=== PATIENT | female | born 1990 | race Two or more races ===

== ENCOUNTER 2017-08-21 04:21 | Emergency (ER) | payer OTHER ==
[~2017-08-21] VITALS: Ht 147.3 cm; Wt 56.0 kg
[~2017-08-21 04:21] MED LIST: HYDR-3533 PO; TAMS0.4C67 PO; ZOFR4TAB3 PO
[2017-08-21 04:25] VITALS: BP 123/58; PULSE 86; RESP 18; TEMP 98.3; O2SAT 99
[2017-08-21] MEDS ORDERED: OMEP40CA2 PO (05:03)
[2017-08-21] MEDS ORDERED: ZOLO50TA PO (05:03)
[2017-08-21] MEDS ORDERED: AMIT25TA9 PO (05:03)
--- NOTE | 2017-08-21 07:40 | RADRPT ---
EXAM DATE: 08/21/2017 7:35 AM EDT AGE/SEX: 26 years / Female INDICATIONS: Chronic left knee pain with no known injury. CLINICAL DATA: This is the patient's initial encounter. Patient reports that signs and symptoms have been present for 1 month and indicates a pain score of 8/10. MEDICAL/SURGICAL HISTORY: . Abdominal pain. Subchronic hematoma, tear in cervix. . se ction. COMPARISON: No prior [facility] exams available for comparison. FINDINGS: Bony structures are intact and in normal alignment. Joints are intact without dislocation or signifi cant arthropathy. Osseous density is normal. Incidental small bone island identified within the tib ia. Soft tissues are unremarkable. No radiopaque foreign bodies seen. CONCLUSION: Negative examination Electronically signed by: Lian Alford MD 08/21/2017 7:39 AM EDT
--- NOTE | 2017-08-21 08:20 | PD ---
HPI Chief Complaint: Musculoskeletal Complaint Time Seen by Provider: 06:47 Travel History International Travel<30 days: No Contact w/Intl Traveler<30days: No Traveled to known affect area: No History of Present Illness HPI 26-year-old female presents to the emergency department for complaint of weeks of left knee pain. Patient states she has 2 children and is very active. Patient denies any swelling of the knee; denies fall injury or twisting type injury that she is aware of. Patient rates pain as moderate to severe, 7/10. Patient patient denies other concerns or complaints. No swelling of the lower extremity PFSH Past Medical History Narrative Medical Anemia anxiety; no tobacco use; nursing notes reviewed Anemia: Yes Anxiety: Yes Diminished Hearing: No GERD: Yes Migraines: Yes ?: Not : 2 Para: 2 Tubal Ligation: Yes Past Surgical History Surgical History: No Previous Surgery Section: Yes Social History Alcohol Use: No (PT DENIES) Tobacco Use: No Substance Use: No (PT DENIES) Allergies-Medications (Allergen,Severity, Reaction): Coded Allergies: morphine (Verified Allergy, Severe, Shortness of Breath, 08/21/17) Reported Meds & Prescriptions Reported Meds & Active Scripts Active Reported Omeprazole 40 Mg Cap 40 Mg PO DAILY Amitriptyline (Amitriptyline HCl) 25 Mg Tab 25 Mg PO HS Zoloft (Sertraline HCl) 50 Mg Tab 50 Mg PO DAILY Review of Systems Except as stated in HPI: all other systems reviewed are Neg Physical Exam Narrative GENERAL: SKIN: Warm and dry. HEAD: Normocephalic. EYES: No scleral icterus. No injection or drainage. NECK: Supple, trachea midline. No JVD or lymphadenopathy. CARDIOVASCULAR: Regular rate and rhythm without murmurs, gallops, or rubs. RESPIRATORY: Breath sounds equal bilaterally. No accessory muscle use. GASTROINTESTINAL: Abdomen soft, non-tender, nondistended. MUSCULOSKELETAL: No cyanosis, or edema. Intact range of motion flexion extension abduction and adduction no instability with provocative testing distally extremities neurovascular tendon intact there is no Homans sign no posterior cord and dorsalis pedis pulses 2+ to palpation capillary refill is brisk and less than 2 seconds BACK: Nontender without obvious deformity. No CVA tenderness. Data Data Last Documented VS Vital Signs Date Time Temp Pulse Resp B/P (MAP) Pulse Ox O2 Delivery O2 Flow Rate FiO2 08/21/17 04:25 98.3 86 18 123/58 (79) 99 Orders Orders Knee, Complete (4vws) (08/21/17 ) MDM Medical Decision Making Medical Screen Exam Complete: Yes Emergency Medical Condition: Yes Medical Record Reviewed: Yes Interpretation(s) Last Impressions Knee X-Ray 08/21/17 0000 Signed Impressions: CONCLUSION: Negative examination Vital Signs Date Time Temp Pulse Resp B/P (MAP) Pulse Ox O2 Delivery O2 Flow Rate FiO2 08/21/17 04:25 98.3 86 18 123/58 (79) 99 Differential Diagnosis Knee strain sprain subluxation internal derangement Narrative Course Physical exam reveals no acute point tenderness ballotable effusion deformity or joint instability with provocative testing. Patient's description is consistent with repetitive use strain; imaging study identifies no acute abnormality Patient is encouraged to use nonsteroidal anti-inflammatories for symptom relief and/or ibuprofen/8 as needed for symptom relief post use Patient can follow-up with primary care provider or return to the emergency department as needed Diagnosis Primary Impression: Strain of left knee Referrals: Primary Care Physician call for appointment Patient Instructions: General Instructions Additional Instructions: Follow-up with primary care provider May use ice intermittently to left knee for acute injury then moist heat recommend ibuprofen 400 mg as often as every 6-8 hours as needed for pain Associates inflammation Return the emergency department for any concerns or change in condition Disposition: 01 DISCHARGE HOME Condition: Stable Rosa Cordova MD Aug 21, 2017 08:20
[2017-08-21] MEDS ORDERED: IBUPROFEN 400 MG TAB PO ONE (08:30)
== END 2017-08-21 09:48 | disposition home or self-care (01) ==
LOC: NEPC 04:21
DX: S83.92XA Sprain of unspecified site of left knee, initial encounter (principal); D64.9 Anemia, unspecified; F41.9 Anxiety disorder, unspecified; K21.9 Gastro-esophageal reflux disease without esophagitis; Z79.899 Other long term (current) drug therapy; Z88.5 Allergy status to narcotic agent
CPT/HCPCS: 73564; 99283